=== PATIENT | female | born 1965 | race Hispanic/Latino ===

== ENCOUNTER 2017-08-14 22:10 | Emergency (ER) | payer BC ==
[~2017-08-14 22:10] MED LIST: ISOVUE-370 76%-LOCM 1 ML ONE
[2017-08-14 22:41] LABS: #Eosinphils 0.2 thou/uL (0.0-0.7); #Lymphocytes 2.3 thou/uL (1.20-3.40); #Monocytes 0.5 thou/uL (0.11-0.59); #Neutrophils 4.1 thou/uL (1.40-6.50); %Basophils 0.5 % (0.0-1.0); %Eosinophils 3.1 % (0.0-10.0); %Lymphocytes 32.6 % (21.0-51.0); %Monocytes 6.3 % (0.0-10.0); %Neutrophils 57.5 % (42.0-75.0); Hemoglobin 14.4 g/dL (12.0-16.0); Mean Corpuscular Hemoglobin 33.6 pg (27.0-31.0); Mean Corpuscular Volume 95.9 fl (81.0-99.0); Mean Platelet Volume 6.4 fL (7.4-10.4); Platelet Count 295 thou/uL (130-400); RBC Distribution Width 11.8 % (11.5-14.5); White Blood Cell (WBC) Count 7.1 thou/uL (4.8-10.8)
[2017-08-14 22:51] LABS: BHCG - Serum Negative (NEGATIVE); Pregs Control Background? CLEAR/WHITE (CLR/WHITE); Pregs Control Bar Appear? YES (CONTROL BAR)
[2017-08-14] MEDS ORDERED: Ondansetron HCl/PF 4 MG/2 ML Vial ONE (22:59)
[2017-08-14 23:02] LABS: ALT (SGPT) 26 U/L (8-55); AST (SGOT) 20 U/L (5-34); Albumin 4.2 g/dL (3.5-5.0); Alkaline Phosphatase 136 U/L (40-150); Anion Gap 12 mmol/L (10-20); BUN (Urea Nitrogen) 21 mg/dL (9.8-20.1); Bilirubin, Total 0.9 mg/dL (0.2-1.2); Calc. Creatinine Clearance 0 mL/min (70-130); Calcium 9.6 mg/dL (7.8-10.44); Carbon Dioxide 29 mmol/L (22-29); Chloride 103 mmol/L (98-107); Estimated GFR-MDRD Greater than 90; Globulin 3.6 g/dL (2.4-3.5); Glucose 129 mg/dL (70-105); Lipase 14 U/L (8-78); Potassium 3.7 mmol/L (3.5-5.1); Protein, Total 7.8 g/dL (6.0-8.3); Sodium 140 mmol/L (136-145)
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
[2017-08-15] MEDS ORDERED: Ketorolac Tromethamine 30 MG/ML VIAL ONE (00:35)
== END 2017-08-15 01:03 | disposition home or self-care (01) ==
LOC: ERS 22:10
DX: M79.1 Myalgia (principal); E11.9 Type 2 diabetes mellitus without complications; I10 Essential (primary) hypertension; F41.9 Anxiety disorder, unspecified; F32.9 Major depressive disorder, single episode, unspecified
CPT/HCPCS: 70450; 71260; 72125; 74177; 80053; 83690; 84703; 85025; 93005; 96374; 96375; J1885; J2270; J2405

== ENCOUNTER 2017-09-19 18:53 | Emergency (ER) | payer BC ==
[2017-09-19] MEDS ORDERED: HYDROcodone/Acetaminophen 5/325 mg Tablet ONE (19:35)
[2017-09-19] MEDS ORDERED: Adacel (T-DAP) 0.5 ML VIAL ONE (19:35)
--- NOTE | 2017-09-19 20:45 | RAD ---
LEFT HAND THREE VIEWS: History: Injury. Dog bite. Left hand pain. FINDINGS/IMPRESSION: No acute fracture or dislocation is seen. Degenerative changes, most prominent in the first carpal me tacarpal joint. No radiopaque foreign body is identified. POS: [facility]
[2017-09-19] MEDS ORDERED: Ondansetron ODT 4 MG TAB ONE (20:50)
[2017-09-19] MEDS ORDERED: Ondansetron HCl/PF 4 MG/2 ML Vial ONE (20:50)
== END 2017-09-19 21:33 | disposition home or self-care (01) ==
LOC: ERS 18:53
DX: S61.052A Open bite of left thumb without damage to nail, initial encounter (principal); E11.9 Type 2 diabetes mellitus without complications; I10 Essential (primary) hypertension; F41.9 Anxiety disorder, unspecified; F32.9 Major depressive disorder, single episode, unspecified; Z79.899 Other long term (current) drug therapy; Z79.84 Long term (current) use of oral hypoglycemic drugs; W54.0XXA Bitten by dog, initial encounter
CPT/HCPCS: 11740; 90471; 90715; J2405; Q0162

== ENCOUNTER 2018-02-05 15:21 | Emergency (ER) | payer BC, OTHER ==
[2018-02-05] MEDS ORDERED: Ketorolac Tromethamine 60 MG/2 ML VIAL ONE (18:26)
== END 2018-02-05 19:42 | disposition home or self-care (01) ==
LOC: ERS 15:21
DX: M54.42 Lumbago with sciatica, left side (principal); I10 Essential (primary) hypertension; E78.5 Hyperlipidemia, unspecified; F32.9 Major depressive disorder, single episode, unspecified; F41.9 Anxiety disorder, unspecified; E11.9 Type 2 diabetes mellitus without complications; Z79.84 Long term (current) use of oral hypoglycemic drugs; Z79.899 Other long term (current) drug therapy
CPT/HCPCS: 96372; J1885

== ENCOUNTER 2018-06-20 17:46 | Inpatient (IN) | payer BC, OTHER ==
[2018-06-20 18:15] LABS: #Basophils 0.1 thou/uL (0.0-0.2); #Eosinphils 0.2 thou/uL (0.0-0.7); #Lymphocytes 2.6 thou/uL (1.20-3.40); #Monocytes 0.5 thou/uL (0.11-0.59); #Neutrophils 6.8 thou/uL (1.40-6.50); %Basophils 0.5 % (0.0-1.0); %Eosinophils 1.8 % (0.0-10.0); %Lymphocytes 25.6 % (21.0-51.0); %Monocytes 5.1 % (0.0-10.0); Hemoglobin 14.8 g/dL (12.0-16.0); Mean Corpuscular HGB CONC 34.5 g/dL (32.0-36.0); Mean Corpuscular Hemoglobin 32.1 pg (27.0-31.0); Mean Corpuscular Volume 92.9 fL (78.0-98.0); Mean Platelet Volume 6.6 fL (7.4-10.4); Platelet Count 365 thou/uL (130-400); RBC Distribution Width 11.7 % (11.5-14.5); Red Blood Cell (RBC) Count 4.62 mill/uL (4.20-5.40); White Blood Cell (WBC) Count 10.2 thou/uL (4.8-10.8)
[2018-06-20 18:26] LABS: PTT 28.6 SEC (22.9-36.1)
[2018-06-20 18:30] LABS: Prothrombin Time 13.2 SEC (12.0-14.7)
[2018-06-20] MEDS ORDERED: Aspirin 325 MG TAB ONE (18:34)
--- NOTE | 2018-06-20 18:39 | RAD ---
FRONTAL RADIOGRAPH CHEST: DATE: 06/20/2018. COMPARISON: 12/11/2015. HISTORY: Chest pain. FINDINGS: Heart and mediastinal contours are stable. Mild pulmonary vascular congestion. No pneumothorax, ple ural fluid, focal consolidation, or alveolar edema. IMPRESSION: No acute findings. POS: [facility]
[2018-06-20 18:44] LABS: ALT (SGPT) 23 U/L (8-55); AST (SGOT) 19 U/L (5-34); Albumin 4.2 g/dL (3.5-5.0); Alkaline Phosphatase 160 U/L (40-150); Anion Gap 10 mmol/L (10-20); BUN (Urea Nitrogen) 17 mg/dL (9.8-20.1); Bilirubin, Total 1.2 mg/dL (0.2-1.2); Calc. Creatinine Clearance 0 mL/min (70-130); Calcium 10.3 mg/dL (7.8-10.44); Carbon Dioxide 26 mmol/L (22-29); Chloride 104 mmol/L (98-107); Estimated GFR-MDRD 84; Globulin 3.4 g/dL (2.4-3.5); Glucose 246 mg/dL (70-105); Potassium 3.5 mmol/L (3.5-5.1); Protein, Total 7.6 g/dL (6.0-8.3); Sodium 136 mmol/L (136-145)
[2018-06-20] MEDS ORDERED: Acetaminophen 325 MG TAB PO PRN ×2 (22:07→22:44)
[2018-06-20] MEDS ORDERED: Ondansetron PF 4 MG/2 ML Vial IVP PRN ×2 (22:07→22:44)
[2018-06-20] MEDS ORDERED: Ondansetron ODT 4 MG TAB SL PRN (22:07)
[2018-06-20 22:08] VITALS: BMI 40.1
[2018-06-20] MEDS ORDERED: Dextrose 5% in Water 1,000 ML IV PRN (22:40)
[2018-06-20] MEDS ORDERED: Dextrose 50% Abboject 50 ML SYRINGE SLOW IVP PRN (22:40)
[2018-06-20] MEDS ORDERED: HumaLOG 300 UNITS/3 ML VIAL SC PRN ×2 (22:40)
[2018-06-20] MEDS ORDERED: ALPRAZolam 0.25 MG TAB PO PRN (22:43)
[2018-06-20] MEDS ORDERED: Nitroglycerin 0.4 MG TAB (25 Tab Bottle) SL PRN (22:44)
[2018-06-20] MEDS ORDERED: hydrALAZINE 20 MG/ML VIAL SLOW IVP PRN (22:44)
[2018-06-20] MEDS ORDERED: cloNIDine 0.1 MG TAB PO PRN (22:44)
[2018-06-20] MEDS ORDERED: Ondansetron ODT 4 MG TAB PO PRN (22:44)
[2018-06-20] MEDS ORDERED: Bisacodyl 10 MG SUPP PR PRN (22:44)
[2018-06-20] MEDS ORDERED: Benzonatate 100 MG CAP PO PRN (22:44)
[2018-06-20] MEDS ORDERED: Senokot S 8.6-50 MG TAB PO PRN (22:44)
[2018-06-20] MEDS ORDERED: Bisacodyl 5 MG TAB PO PRN (22:44)
[2018-06-20] MEDS ORDERED: Enoxaparin Sodium 120 MG/0.8 ML SYRINGE SC SCH (22:45)
[2018-06-20] MEDS ORDERED: Digoxin 0.5 MG/2 ML AMP SLOW IVP PRN (22:47)
[2018-06-21] MEDS ORDERED: diphenhydrAMINE 25 MG CAP PO SCH (01:45)
[2018-06-21] MEDS ORDERED: DULoxetine 30 MG CAP PO SCH (04:00)
--- NOTE | 2018-06-21 04:12 | HP ---
Please note that the patient was seen prior to midnight. PRIMARY CARE PHYSICIAN: Temitope Roberts MD CHIEF COMPLAINT: Palpitation. HISTORY OF PRESENTING ILLNESS: Ms. Calvillo is a 52-year-old female with past medical history of diabetes mellitus and hypertension, who presented to the emergency room with sudden onset of palpitation. History is mainly obtained by the patient herself. Electronic medical records have been reviewed. Ms. Calvillo reports that she was sitting down in the house when suddenly she started to have palpitation. She immediately presented to the emergency room. This was not associated with any chest pain, shortness of breath, vomiting, diaphoresis, or nausea. Denies any history of heart disease. Denies any similar symptoms in the past. No recent exacerbating or relieving factors. No recent illnesses or sick contacts. Upon presentation to the emergency room, she was found to be tachycardic with a heart rate of 93, blood pressure 173/127. Her heart rate did go up as high as 138 to 146. She was treated with multiple dosages of IV diltiazem. Her 12-lead EKG showed atrial flutter with RVR initially, then atrial fibrillation with a controlled ventricular response. She is now being admitted to telemetry unit for new onset atrial fibrillation with RVR. Since being up on the floor, she has converted to normal sinus rhythm and is maintaining her heart rate in the 80s. PAST MEDICAL HISTORY: 1. Diabetes mellitus. 2. Hypertension. 3. Dyslipidemia. 4. Medical noncompliance. PAST SURGICAL HISTORY: 1. Bilateral eye surgeries. 2. Implant to right eye. 3. Cataract surgery to right eye. 4. Cholecystectomy. 5. Hysterectomy. 6. Left knee surgery. 7. Varicose vein surgery bilaterally. PSYCHIATRIC HISTORY: Anxiety and depression. SOCIAL HISTORY: No history of drug, tobacco, or alcohol abuse. FAMILY HISTORY: She denies any family history of premature coronary artery disease, stroke, or cancer. ALLERGIES: NO KNOWN MEDICATION ALLERGIES. HOME MEDICATIONS: As below: 1. Omeprazole 20 mg daily. 2. Multivitamin daily. 3. Duloxetine 60 mg at bedtime. 4. Atorvastatin 20 mg daily. 5. Flonase daily. 6. Meloxicam 15 mg daily. 7. Losartan 100 mg daily. 8. Metformin 1000 mg p.o. b.i.d. CODE STATUS: Full code discussed with the patient. REVIEW OF SYSTEMS: At this time, the patient is complaining of some arm restlessness. Otherwise, 12-point review of system is negative except for those mentioned in the history and physical. She has no other symptoms on my examination at this time. LABORATORY DATA: Her CBC is unremarkable. PT, PTT, and INR are within normal limits. Serum chemistries show blood sugar of 246, alkaline phosphatase 160. Cardiac enzymes are within normal limits x3 for troponin I. BNP 12.7. TSH normal at 1.31. DIAGNOSTIC STUDIES: Chest x-ray by my review has no pleural effusion, edema, or infiltrate. A 12-lead EKG initially showed atrial fibrillation with RVR, but later it showed atrial fibrillation with controlled ventricular response. QTc is [address]-T wave changes by my review. PHYSICAL EXAMINATION: VITAL SIGNS: Most recent vital signs; heart rate 82, temperature 98.1, pulse of 18, saturating 95% on room air, blood pressure 101/59, although this is a few hours old. I have been told that blood pressure has been better after that. GENERAL: No acute distress. She does appear somewhat restless, but was fast asleep when I woke her up. Awake, alert, and oriented x3. HEENT: Mucous membrane is moist and pink. No oropharyngeal exudate or erythema. Head is normocephalic, atraumatic. Pupils equal and reactive to light and accommodation. Extraocular movement intact. NECK: Supple without any lymphadenopathy, JVD, or bruit. CHEST: Clear to auscultation without any wheezing, rales, or rhonchi. HEART: Rate and rhythm are regular without any murmurs, rubs, or gallops. ABDOMEN: Soft, nontender, nondistended with positive bowel sounds. EXTREMITIES: Free of any cyanosis, clubbing, or edema. NEUROLOGICAL: Nonfocal. SKIN: Free of any rashes or bruises. Feels warm and dry to touch. PSYCHIATRIC: Anxious. IMPRESSION AND PLAN: 1. New onset atrial fibrillation. The patient has converted spontaneously and is rate controlled for now. We will use digoxin versus Cardizem if it happens again. She is currently hemodynamically stable. Given the high [id number] score of 3, we will start her on anticoagulation with Lovenox b.i.d. We will perform an echocardiogram and consult Cardiology for further recommendations. No provoking factors are identifiable at this time. 2. Hypertension. Restart her home medications of losartan. 3. Diabetes mellitus type 2. We will hold the metformin for now and start her on insulin sliding scale while in hospital with frequent Accu-Cheks. 4. Dyslipidemia. Continue Lipitor. 5. Deep venous thrombosis and gastrointestinal prophylaxis. 6. Code status. Full code. 7. Add p.r.n. medication orders. DISPOSITION: Ms. Calvillo is currently being admitted to the hospital with new onset atrial fibrillation with RVR, which has spontaneously resolved. Estimated length of stay at this time is at least 2 to 3 midnights. She might need electrophysiology evaluation if it reoccurs. Anticoagulation as above and most likely will need oral anticoagulation on discharge, but we will defer the final decision for Cardiology. Job ID: [id number]
[2018-06-21 06:19] LABS: #Basophils 0.1 thou/uL (0.0-0.2); #Eosinphils 0.3 thou/uL (0.0-0.7); #Lymphocytes 3.1 thou/uL (1.20-3.40); #Monocytes 0.6 thou/uL (0.11-0.59); #Neutrophils 5.3 thou/uL (1.40-6.50); %Basophils 1.1 % (0.0-1.0); %Eosinophils 3.3 % (0.0-10.0); %Lymphocytes 32.7 % (21.0-51.0); %Monocytes 6.2 % (0.0-10.0); %Neutrophils 56.8 % (42.0-75.0); Hemoglobin 13.1 g/dL (12.0-16.0); Mean Corpuscular HGB CONC 33.2 g/dL (32.0-36.0); Mean Corpuscular Hemoglobin 31.6 pg (27.0-31.0); Mean Platelet Volume 7.7 fL (7.4-10.4); Platelet Count 308 thou/uL (130-400); RBC Distribution Width 11.6 % (11.5-14.5); Red Blood Cell (RBC) Count 4.15 mill/uL (4.20-5.40); White Blood Cell (WBC) Count 9.4 thou/uL (4.8-10.8)
[2018-06-21 06:26] LABS: Anion Gap 12 mmol/L (10-20); BUN (Urea Nitrogen) 13 mg/dL (9.8-20.1); Calc. Creatinine Clearance 161 mL/min (70-130); Calcium 9.3 mg/dL (7.8-10.44); Carbon Dioxide 25 mmol/L (22-29); Chloride 104 mmol/L (98-107); Estimated GFR-MDRD 89; Glucose 268 mg/dL (70-105); Potassium 3.5 mmol/L (3.5-5.1); Sodium 137 mmol/L (136-145)
[2018-06-21] MEDS ORDERED: Fluticasone Propionate Nasal Spray 16 gm Bottle NASAL SCH (09:00)
[2018-06-21] MEDS ORDERED: Atorvastatin Calcium 20 MG TAB PO SCH (09:00)
[2018-06-21] MEDS ORDERED: Losartan 25 MG TAB PO SCH (09:00)
[2018-06-21] MEDS ORDERED: Enoxaparin Sodium 120 MG/0.8 ML SYRINGE SC SCH (09:00)
[2018-06-21] MEDS ORDERED: Multivit, Therapeutic 1 TAB PO SCH (09:00)
[2018-06-21] MEDS ORDERED: Famotidine 20 MG TAB PO SCH (09:00)
[2018-06-21] MEDS ORDERED: Apixaban 5 MG TAB PO SCH ×3 (09:00→21:00)
[2018-06-21 11:59] VITALS: BP 135/64; TEMP 97.6
--- NOTE | 2018-06-21 12:48 | DIS ---
DATE OF ADMISSION: 06/20/2018 DATE OF DISCHARGE: 06/21/2018 PRIMARY CARE PROVIDER: Temitope Roberts MD DISPOSITION: Discharged home. FINAL DIAGNOSES: Paroxysmal atrial fibrillation, hypertension, dyslipidemia, and diabetes mellitus type 2. DISCHARGE MEDICATIONS: New: 1. Eliquis 5 mg p.o. b.i.d. 2. Multaq 400 mg p.o. b.i.d. 3. Metoprolol XL 25 once a day. Routine medicines: 1. Metformin 1000 mg p.o. b.i.d. 2. Losartan 100 mg daily. 3. Atorvastatin 20 mg a day. 4. Cymbalta 60 mg a day. 5. Multivitamin. 6. Omeprazole 20 mg a day. ALLERGIES: NO KNOWN DRUG ALLERGIES. PENDING AT THE TIME OF DISCHARGE: The patient will have an outpatient echocardiogram at Dr. Deal's office next week. DIET: Diabetic. CODE STATUS: Full. HOSPITAL COURSE: The patient admitted to [facility]. She presented with palpitations, found to have atrial fibrillation with rapid ventricular response. She was given IV diltiazem. She converted to regular sinus rhythm soon after being placed on the floor. Dr. Deal, Cardiology was consulted. She is currently in regular sinus rhythm. Blood sugars were in the 200 to 300 range. Metabolic profile normal other than the blood sugar and alkaline phosphatase of 160. Cardiac enzymes normal x3. TSH 1.3. Hematology, CBC normal. Dr. Deal started on the patient on Eliquis 5 mg twice a day, metoprolol XL 25 once a day, and Multaq 400 twice a day. He has cleared the patient for discharge. The patient currently has a normal cardiorespiratory exam. She is being discharged on her home medicines plus those three new ones mentioned. No procedures were done. She will see Dr. Deal in the office in 1 week, at which time she will have an echocardiogram. Job ID: [id number]
[2018-06-21] MEDS ORDERED: Dronedarone HCl 400 MG TAB PO SCH (17:00)
[2018-06-21] MEDS ORDERED: DULoxetine 60 MG CAP PO SCH (21:00)
--- NOTE | 2018-06-22 01:30 | CON ---
DATE OF CONSULTATION: REASON FOR CONSULTATION: Atrial fibrillation. HISTORY OF PRESENT ILLNESS: Ms. Calvillo is a very pleasant 52-year-old woman, who I have seen and evaluated in the past. She has a previous history of diabetes mellitus, hypertension. She recently presented with palpitation. She was found to be in atrial fibrillation with RVR. There may be a component of atrial flutter. She converted to sinus rhythm after 3 hours. She is currently asymptomatic. No chest pain, pressure, or associated symptoms. PAST MEDICAL HISTORY: As above including hyperlipidemia and previous noncompliance. PAST SURGICAL HISTORY: Cataract surgery, cholecystectomy, hysterectomy, left knee surgery, and eye surgery. SOCIAL HISTORY: No current tobacco or alcohol use. ALLERGIES: NONE. HOME MEDICATIONS: Include metformin, cyclobenzaprine, losartan, hydrochlorothiazide, and Tylenol. REVIEW OF SYSTEMS: Ten-point review of systems is reviewed and is negative. PHYSICAL EXAMINATION: GENERAL: The patient is a pleasant female, who is in no acute distress. The patient appears their stated age. VITAL SIGNS: Blood pressure 135/64, pulse 70, and temperature 97.6. NEUROLOGIC: The patient is alert and oriented x3 with no focal neurologic deficits. HEENT: Sclerae without icterus. Mouth has moist mucous membranes with normal pallor. NECK: No JVD. Carotid upstroke brisk. No bruits bilaterally. LUNGS: Clear to auscultation with unlabored respirations. BACK: No scoliosis or kyphosis. CARDIAC: Regular rate and rhythm with normal S1 and S2. No S3 or S4 noted. No significant rubs, murmurs, thrills, or gallops noted throughout the precordium. PMI is not displaced. There is no parasternal heave. ABDOMEN: Soft, nontender, nondistended. No peritoneal signs present. No hepatosplenomegaly. No abnormal striae. EXTREMITIES: 2+ femoral and 2+ dorsalis pedis pulses. No cyanosis, clubbing, or edema. SKIN: No gross abnormalities. PERTINENT LABS: CK and troponin negative. Hemoglobin 13.1. TSH 1.3. Clinical Doppler showed normal LVEF. IMPRESSION: Paroxysmal atrial fibrillation. RECOMMENDATIONS: Ms. Calvillo's CHADS2 score is 3. She has increased risk of stroke. We discussed the risks and benefits of anticoagulation therapy. She has opted to take Eliquis. We would recommend 5 mg one p.o. b.i.d. I have also added Multaq 400 mg p.o. b.i.d. in addition to low-dose beta-koko therapy. From my standpoint, she will be okay for discharge with close outpatient followup. Job ID: [id number]
== END 2018-06-21 14:00 | disposition home or self-care (01) | DRG 310 ==
LOC: ERS 17:46 → 2NO 19:40
PROVIDERS: ADMIT Internal Medicine Infectious Disease; ATTEND Internal Medicine Infectious Disease
PROC: B24BZZZ Ultrasonography of Heart with Aorta (ICD-10-PCS; principal; 2018-06-21)
DX: I48.0 Paroxysmal atrial fibrillation (principal); I10 Essential (primary) hypertension; E11.9 Type 2 diabetes mellitus without complications; Z79.84 Long term (current) use of oral hypoglycemic drugs; E78.5 Hyperlipidemia, unspecified
CPT/HCPCS: 36416; 71045; 80048; 80053; 83735; 83880; 84443; 84484; 85025; 85610; 85730; 93005; 93306; 96361; 96374; 96376; J1650

== ENCOUNTER 2019-09-18 08:04 | Outpatient (CLI) | payer BC ==
--- NOTE | 2019-09-18 09:26 | MMO ---
Bilateral MAMMO Bilat Screen [facility]. CLINICAL HISTORY: Patient is 54 years old and is seen for screening. The patient has no family history of breast cancer. The patient has no personal history of cancer. VIEWS: The views performed were: bilateral craniocaudal with tomosynthesis and bilateral mediolateral oblique with tomosynthesis. This study has been interpreted with the assistance of computer-aided detection. MAMMOGRAM FINDINGS: There are scattered fibroglandular densities. There are no suspicious masses, suspicious calcifications, or new areas of architectural distortion. IMPRESSION: THERE IS NO MAMMOGRAPHIC EVIDENCE OF MALIGNANCY. A ROUTINE FOLLOW-UP MAMMOGRAM IN 1 YEAR IS RECOMMENDED. THE RESULTS OF THIS EXAM WERE SENT TO THE PATIENT. ACR BI-RADS Category 1 - Negative MAMMOGRAPHY NOTE: 1. A negative mammogram report should not delay a biopsy if a dominant of clinically suspicious mass is present. 2. Approximately 10% to 15% of breast cancers are not detected by mammography. 3. Adenosis and dense breasts may obscure an underlying neoplasm. Reported by: LAZARA AGUILERA MD Electonically Signed: [id number]
== END 2019-09-18 08:05 | disposition home or self-care (01) ==
LOC: BICMAMMO 08:04
PROVIDERS: ATTEND Nurse Practitioner Family
DX: Z12.31 Encounter for screening mammogram for malignant neoplasm of breast (principal)
CPT/HCPCS: 77063; 77067

== ENCOUNTER 2019-10-11 21:42 | Inpatient (IN) | payer BC ==
[2019-10-11 22:07] LABS: #Basophils 0.1 thou/uL (0.0-0.2); #Eosinphils 0.3 thou/uL (0.0-0.7); #Lymphocytes 3.1 thou/uL (1.20-3.40); #Monocytes 0.7 thou/uL (0.11-0.59); #Neutrophils 8.2 thou/uL (1.40-6.50); %Basophils 0.8 % (0.0-1.0); %Eosinophils 2.6 % (0.0-10.0); %Lymphocytes 25.4 % (21.0-51.0); %Monocytes 5.3 % (0.0-10.0); %Neutrophils 65.9 % (42.0-75.0); Hemoglobin 15.2 g/dL (12.0-16.0); Mean Corpuscular HGB CONC 35.3 g/dL (32.0-36.0); Mean Corpuscular Hemoglobin 32.2 pg (27.0-31.0); Mean Corpuscular Volume 91.4 fL (78.0-98.0); Mean Platelet Volume 6.6 fL (7.4-10.4); Platelet Count 338 thou/uL (130-400); RBC Distribution Width 11.7 % (11.5-14.5); Red Blood Cell (RBC) Count 4.72 mill/uL (4.20-5.40); White Blood Cell (WBC) Count 12.4 thou/uL (4.8-10.8)
[2019-10-11 22:24] LABS: ALT (SGPT) 21 U/L (8-55); AST (SGOT) 15 U/L (5-34); Albumin 4.1 g/dL (3.5-5.0); Alkaline Phosphatase 161 U/L (40-110); Anion Gap 14 mmol/L (10-20); BUN (Urea Nitrogen) 10 mg/dL (9.8-20.1); Bilirubin, Total 0.8 mg/dL (0.2-1.2); Calc. Creatinine Clearance 0 mL/min (70-130); Calcium 9.9 mg/dL (7.8-10.44); Carbon Dioxide 24 mmol/L (22-29); Chloride 104 mmol/L (98-107); Estimated GFR-MDRD 76; Globulin 3.5 g/dL (2.4-3.5); Glucose 191 mg/dL (70-105); Potassium 3.7 mmol/L (3.5-5.1); Protein, Total 7.6 g/dL (6.0-8.3); Sodium 138 mmol/L (136-145)
[2019-10-11] MEDS ORDERED: Diltiazem 125 MG/25 ML ONE (22:29)
[2019-10-11] MEDS ORDERED: Enoxaparin Sodium 100 MG/ML SYRINGE ONE (22:57)
--- NOTE | 2019-10-11 23:11 | RAD ---
RADIOGRAPH CHEST 1 VIEW: DATE: 10/11/2019 HISTORY: 54-year-old female with palpitations FINDINGS: Lungs are hypoinflated, and positioning is reversed lordotic. There is no evidence of gross consolida tion, pulmonary edema, or pneumothorax. Mild haziness at left lower lung zone, nonspecific The lateral costophrenic angles are not effaced. IMPRESSION: 1. Limited study. 2. No gross consolidation identified.
[2019-10-11] MEDS ORDERED: Potassium Chloride 20 MEQ TAB ONE (23:59)
[2019-10-11] MEDS ORDERED: Magnesium 2 GM/50 ML BAG (IN WATER) ONE (23:59)
[2019-10-12] MEDS ORDERED: Dextrose 5% in Water 1,000 ML IV PRN (00:38)
[2019-10-12] MEDS ORDERED: Dextrose 50% Abboject 50 ML SYRINGE SLOW IVP PRN (00:38)
[2019-10-12] MEDS ORDERED: HumaLOG 300 UNITS/3 ML VIAL SC PRN (00:38)
[2019-10-12] MEDS ORDERED: Diltiazem 125 MG in Sodium Chloride 0.9% 100 ML IVPB SCH (00:45)
--- NOTE | 2019-10-12 01:15 | HP ---
CHIEF COMPLAINT: Palpitations. HISTORY OF PRESENT ILLNESS: Ms. Calvillo is a 54-year-old female, with past medical history of diabetes mellitus, type 2; hypertension; hyperlipidemia; and atrial fibrillation, presented to the emergency room with heart palpitations. Denies chest pain, fever, chills, nausea, vomiting, or abdominal pain. Denies dizziness. Patient had similar prior episodes in the past. She denies being on blood thinners at this time. Patient is being admitted to the hospital for further management. PAST MEDICAL HISTORY: As mentioned above in the history of present illness. SURGICAL HISTORY: 1. Cataract surgery. 2. Cholecystectomy. 3. Hysterectomy. 4. Knee surgery. 5. Bilateral leg varicose vein surgery. PAST PSYCHIATRIC HISTORY: Anxiety and depression. SOCIAL HISTORY: Denies alcohol drinking. No history of smoking. FAMILY HISTORY: Reviewed and noncontributory. HOME MEDICATIONS: Please see home medication reconciliation form for updated medications. ALLERGIES: NO KNOWN ALLERGIES. REVIEW OF SYSTEMS: Review of 14 systems negative, except what is mentioned in the history of present illness. PHYSICAL EXAMINATION: GENERAL: Patient is awake, alert, in mild distress. VITAL SIGNS: Blood pressure 110/96, pulse is 117, respiratory rate is 15, temperature 98.2, and oxygen saturation is 95% on room air. HEAD AND NECK: Normocephalic and atraumatic. Neck is supple. No JVD. CHEST: Fair bilateral air entry. HEART: Irregularly irregular, tachycardic. ABDOMEN: Soft, nontender. Bowel sounds present. NEUROLOGIC: Awake, alert, and oriented x3. No focal findings. PSYCH: Unable to assess. EXTREMITIES: No clubbing, no cyanosis. GENITOURINARY: No suprapubic tenderness. No flank tenderness. IMAGING: Chest x-ray, no acute finding. LABORATORY DATA: TSH is 3.7. Troponin is less than 0.01. Electrolytes; glucose 191, otherwise unremarkable. CBC; WBC count is 12.4. ASSESSMENT AND PLAN: 1. Atrial fibrillation with rapid ventricular response. Patient was given IV diltiazem, followed by IV diltiazem drip. The blood pressure dropped, requiring IV fluid bolus in the ED. 2. Diabetes mellitus, type 2 with hyperglycemia. 3. History of hypertension. 4. Hyperlipidemia. PLAN: 1. Admit to IMCU. 2. Continue with IV diltiazem drip. 3. We will anticoagulate. Apparently, patient was on anticoagulation in the past, but it was stopped. 4. 2D echo. 5. Consult Cardiology in a.m. for evaluation and further recommendations. 6. Reconcile home medications. 7. DVT prophylaxis as appropriate. 8. Expected length of stay 2 midnights or more. Job ID: [id number]
[2019-10-12 01:16] LABS: Troponin I 0.019 ng/mL (< 0.028)
[2019-10-12 01:19] VITALS: BMI 40.9
[2019-10-12] MEDS: Sodium Chloride 0.9% 1,000 ML IV SCH ×2 (01:57→13:08)
[2019-10-12 04:25] LABS: Troponin I 0.023 ng/mL (< 0.028)
[2019-10-12] MEDS ORDERED: Famotidine/PF 20 mg/2ml Vial SLOW IVP SCH (09:00)
[2019-10-12] MEDS ORDERED: Aspirin 325 mg Enteric Coated Tablet PO SCH (09:00)
[2019-10-12] MEDS ORDERED: Enoxaparin Sodium 120 MG/0.8 ML SYRINGE SC SCH (09:00)
[2019-10-12] MEDS: Aspirin 81 mg Enteric Coated Tablet PO SCH (10:42)
--- NOTE | 2019-10-12 11:59 | PDOC.HOSPP ---
- Subjective Encounter Date: 10/12/19 Encounter Time: 08:15 Subjective: no sob or palpitaitons or chest pain feels good this am - Objective Vital Signs & Weight: Vital Signs (12 hours) Temp Pulse Ox 10/12/19 11:24 98.0 F 10/12/19 08:00 97 10/12/19 07:22 97.6 F 10/12/19 06:43 93 L 10/12/19 01:43 96 10/12/19 01:10 98.2 F 10/12/19 00:35 97 Weight Weight 246 lb 4 oz Most Recent Monitor Data Heart Rate from ECG 76 NIBP 123/71 NIBP BP-Mean 88 Respiration from ECG 19 SpO2 93 I&O: 10/11/19 10/12/19 10/13/19 06:59 06:59 06:59 Intake Total 717 Output Total 1200 Balance -483 Result Diagrams: 10/11/19 21:51 10/11/19 21:51 Additional Labs: Accuchecks 10/12/19 10/12/19 11:04 05:35 POC Glucose 123 H 124 H Hospitalist ROS - Medication Medications: Active Medications Generic Name Dose Route Start Last Admin Trade Name Freq PRN Reason Stop Dose Admin Aspirin 81 mg 10/12/19 09:00 10/12/19 10:42 Ecotrin PO 81 mg DAILY TAN Administration Sodium Chloride 10 ml 10/12/19 09:00 10/12/19 10:43 Flush - Normal Saline IVF 10 ml Q12HR TAN Administration - Exam General Appearance: NAD, awake alert Eye: PERRL, anicteric sclera ENT: no oropharyngeal lesions, moist mucosa Neck: supple, no JVD Heart: RRR, no murmur Respiratory: no wheezes, no rales Gastrointestinal: soft, non-tender, non-distended, normal bowel sounds Extremities: no cyanosis, no edema Neurological: cranial nerve grossly intact, no focal deficits Psychiatric: normal affect, A&O x 3 Hosp A/P (1) Atrial fibrillation with rapid ventricular response Code(s): I48.91 - UNSPECIFIED ATRIAL FIBRILLATION Status: Resolved (2) DM type 2 (diabetes mellitus, type 2) Status: Chronic Qualifiers: Diabetes mellitus mcc insulin use: without moth exterminator use (3) Dyslipidemia Code(s): E78.5 - HYPERLIPIDEMIA, UNSPECIFIED Status: Chronic (4) HTN (hypertension) Code(s): I10 - ESSENTIAL (PRIMARY) HYPERTENSION Status: Chronic Qualifiers: Hypertension type: essential hypertension Qualified Code(s): I10 - Essential (primary) hypertension (5) Obesity Code(s): E66.9 - OBESITY, UNSPECIFIED Status: Chronic Qualifiers: Obesity classification: adult class 3 (BMI >= 40) Body mass index: BMI 40.0 -44.9 - Plan paroxysmal afib in sinus rhythm on cardizem drip 7.5mg/hr will switch to oral cardizem cd and low dose lopressor, eliquis echo is pending, cardiology consultation this is her second episode of afib, she had seen before but with change of insurance couldn't see him again. continue home meds as before tx to telemetry, no hypotensive episodes now. oral diet, dc iv fluids
[2019-10-12] MEDS: traMADol HCl 50 MG TAB PO PRN (14:32)
--- NOTE | 2019-10-12 15:11 | CON ---
DATE OF CONSULTATION: 10/12/2019 REASON FOR CONSULTATION: Atrial fibrillation. PRIMARY EXPLOSIVE OPERATOR BOMB: Leo Deal MD. HISTORY OF PRESENT ILLNESS: Ms. Calvillo is a very pleasant 54-year-old female, who comes to the hospital for palpitations. She was evaluated in the ER for this and was found to be in atrial fibrillation with RVR. She was started on diltiazem drip. Overnight, she has already converted back to sinus rhythm and feels back to normal. She does have a history of paroxysmal atrial fibrillation. About 2 years ago, she was placed on Multaq and Eliquis as her CHADS-VASc score is 3 with hypertension, diabetes, and age. She has not been very much compliant with these medications. The last time she saw Dr. Deal was about a year ago. PAST MEDICAL HISTORY: 1. Paroxysmal atrial fibrillation. 2. Type 2 diabetes. 3. Hypertension. 4. Hyperlipidemia. PAST SURGICAL HISTORY: 1. Cataract surgery. 2. Cholecystectomy. 3. Hysterectomy. 4. Knee surgery. 5. Bilateral leg varicose veins procedure. SOCIAL HISTORY: No alcohol, tobacco, or drugs. FAMILY HISTORY: Noncontributory. OUTPATIENT MEDICATIONS: 1. Glipizide 2.5 mg a day. 2. Tramadol p.r.n. 3. Tizanidine. 4. Metformin 1000 mg b.i.d. 5. Hydroxyzine p.r.n. 6. Omeprazole 20 mg at bedtime. 7. Fluoxetine 20 mg q.a.m. 8. Cinnamon bark. ALLERGIES: NO KNOWN DRUG ALLERGIES. REVIEW OF SYSTEMS: A 12-point review of systems was done and was all negative unless stated in the history of present illness. PHYSICAL EXAMINATION: VITAL SIGNS: Temperature 98.8, pulse 58, respiratory rate 16, saturations 97% on room air, blood pressure 146/68. GENERAL: Awake, alert, oriented x3, in no distress. HEENT: Normocephalic and atraumatic. NECK: Supple. LUNGS: Clear. CARDIOVASCULAR: S1 and S2. No S3 or S4. No murmurs. ABDOMEN: Soft. Positive bowel sounds. EXTREMITIES: Trace edema. SKIN: Warm and dry. LABORATORY DATA: Laboratory work was reviewed. CBC is unremarkable. D-dimer is a little bit high. Chemistries were unremarkable. Troponin was negative x2. BNP was 236. TSH was 3.5. UA was unremarkable. IMAGING STUDIES: Chest x-ray, unremarkable. Lower extremity ultrasound was normal. ASSESSMENT AND PLAN: 1. Paroxysmal atrial fibrillation in rapid ventricular response, back to sinus now. 2. Medication noncompliance. 3. CHADS-VASc score of 3 for a female, hypertension, and diabetes. PLAN: 1. She is back in sinus. Agree with being off the drips. Continue beta-koko and diltiazem. We will start Multaq as she did very well while on the Multaq 400 mg b.i.d. She states that she had problems with insurance, but now she is insured since she has been working at the [employer]. 2. Continue full anticoagulation with Eliquis. 3. Dr. Deal will follow up in the morning. Most likely home tomorrow. Job ID: [id number]
[2019-10-12] MEDS: metFORMIN 500 MG TAB PO SCH (17:10)
[2019-10-12] MEDS: Dronedarone HCl 400 MG TAB PO SCH (17:10)
[2019-10-12] MEDS ORDERED: hydrOXYzine 25 MG TAB PO PRN (17:49)
[2019-10-12] MEDS: Apixaban 5 MG TAB PO SCH (20:36)
[2019-10-12] MEDS ORDERED: Metoprolol Tartrate 25 MG TAB PO SCH (21:00)
[2019-10-12] MEDS ORDERED: FLUoxetine HCl 20 MG CAP PO SCH (21:00)
[2019-10-12] MEDS ORDERED: tiZANidine HCl 4 MG TAB PO PRN (21:00)
[2019-10-13] MEDS ORDERED: Melatonin 3 MG TAB PO SCH (00:15)
[2019-10-13] MEDS: traMADol HCl 50 MG TAB PO PRN (00:16)
[2019-10-13 04:38] LABS: Hemoglobin 13.5 g/dL (12.0-16.0); Platelet Count 302 thou/uL (130-400)
[2019-10-13 05:01] LABS: Calc. Creatinine Clearance 188 mL/min (70-130); Estimated GFR-MDRD Greater than 90
[2019-10-13 07:01] VITALS: TEMP 98
[2019-10-13] MEDS: metFORMIN 500 MG TAB PO SCH (08:02)
[2019-10-13] MEDS: Dronedarone HCl 400 MG TAB PO SCH (08:02)
[2019-10-13] MEDS: Apixaban 5 MG TAB PO SCH (08:02)
[2019-10-13] MEDS: Aspirin 81 mg Enteric Coated Tablet PO SCH (08:02)
[2019-10-13] MEDS ORDERED: FLUoxetine HCl 20 MG CAP PO SCH (09:00)
--- NOTE | 2019-10-13 10:40 | PRG ---
DATE OF SERVICE: 10/13/2019 SUBJECTIVE: Ms. Calvillo is doing well. She continues to be in sinus rhythm. Echo Doppler dated 10/12/2019 with LVEF of 60% to 65%. She did have mild concentric LVH. PHYSICAL EXAMINATION: Vital Signs: Current blood pressure 131/60, pulse 66, temperature 98, respirations General: The patient is a pleasant lady in no acute distress, appears stated age. Head, Eyes, Ears, Nose and Throat: Sclerae without icterus. Mouth: Moist mucous membranes, normal palate. Neck: No jugular venous distention. Carotid upstroke is brisk. No bruits bilaterally. Lungs: Clear to auscultation. Heart: Regular rate and rhythm, normal S1 and S2. Abdomen: Soft, nontender, nondistended. Extremities: No edema. PERTINENT LABORATORY DATA: Hemoglobin 13.5 and hematocrit 38.7. Creatinine 0.59. MEDICATIONS: Pertinent cv medications include: 1. Eliquis 5 mg b.i.d. 2. Aspirin 81 daily. 3. Cardizem 240 q.a.m. 4. Multaq 400 b.i.d. IMPRESSION: Paroxysmal atrial fibrillation. RECOMMENDATIONS: 1. Agree with adding Eliquis. 2. Discontinue aspirin. 3. Continue Cardizem at the current dose in addition to Multaq. 4. Overall LVEF appears normal. 5. From my standpoint, she will be okay for discharge with close outpatient followup. Job ID: [id number]
[2019-10-13 11:14] VITALS: BP 131/60
--- NOTE | 2019-10-13 17:40 | DIS ---
DATE OF ADMISSION: 10/12/2019 DATE OF DISCHARGE: 10/13/2019 DISCHARGE DISPOSITION: Home. PRIMARY DISCHARGE DIAGNOSIS: Atrial fibrillation with rapid ventricular response, likely paroxysmal in sinus rhythm. SECONDARY DISCHARGE DIAGNOSES: Diabetes mellitus, type 2; dyslipidemia; hypertension and obesity. PROCEDURES DONE DURING HOSPITALIZATION: Chest x-ray done showed no acute cardiopulmonary abnormality, echo with 2D Doppler showed ejection fraction of 60% to 65%, grade 1/3 diastolic dysfunction, mild concentric LVH, moderate tricuspid regurgitation. LABORATORY DATA: H and H of 13 and 38, platelet count 302, MCV is 91, creatinine was 0.5. Troponin x3 negative. TSH 3.7. DISCHARGE MEDICATIONS: 1. Multaq 400 mg p.o. twice daily. 2. Cardizem CD 120 mg p.o. daily. 3. Eliquis 5 mg p.o. twice daily. 4. Omeprazole 20 mg p.o. at bedtime. 5. Metformin 1000 mg twice daily. 6. Glipizide extended release 2.5 mg p.o. q.a.m. 7. Fluoxetine 20 mg p.o. q.a.m. 8. Ultram p.r.n. for pain. ALLERGIES: NO KNOWN DRUG ALLERGIES. DISCHARGE PLAN: The patient to follow up with her primary care physician, Dr. Shayna Reynolds in 1 week, Dr. Deal in 2 to 3 weeks. INPATIENT CONSULT: Dr. Fernandes/[facility]. BRIEF COURSE DURING HOSPITALIZATION: The patient initially came to ER on the with complaints of palpitation. She was found to be in atrial fibrillation with RVR. She has had prior episode of paroxysmal atrial fibrillation eight years back. She failed to follow up with Dr. Deal due to insurance issues. She was placed on Cardizem drip and had initial hypotension, hence was admitted to [facility] for close monitoring. The patient converted to sinus rhythm on Cardizem drip and was switched over to Multaq and Cardizem CD. Her hypotension got resolved. The patient dramatically improved during her brief stay here. She was evaluated by Dr. Fernandes and Dr. Deal for Cardiology. She has been initiated on Multaq, Cardizem CD, and Eliquis. Her echo showed good ejection fraction. The patient is ambulating and is eating well. She is wanting to go home. Please note, I have seen and examined the patient on the day of discharge. Job ID: [id number]
== END 2019-10-13 11:20 | disposition home or self-care (01) | DRG 309 ==
LOC: ERS 21:42 → IMCU/EMU 10-12 00:17 → 2NO 10-12 13:21
PROVIDERS: ADMIT Internal Medicine; ATTEND Internal Medicine
DX: I48.0 Paroxysmal atrial fibrillation (principal); Z68.41 Body mass index [BMI] 40.0-44.9, adult; I10 Essential (primary) hypertension; E78.5 Hyperlipidemia, unspecified; F41.9 Anxiety disorder, unspecified; F32.9 Major depressive disorder, single episode, unspecified; E66.9 Obesity, unspecified; I95.9 Hypotension, unspecified; I07.1 Rheumatic tricuspid insufficiency; E11.65 Type 2 diabetes mellitus with hyperglycemia; Z90.49 Acquired absence of other specified parts of digestive tract; Z90.710 Acquired absence of both cervix and uterus; Z98.49 Cataract extraction status, unspecified eye; Z91.14 Patient's other noncompliance with medication regimen
CPT/HCPCS: 36415; 36416; 71045; 80053; 82565; 83735; 84443; 84484; 85014; 85018; 85025; 85049; 90471; 90732; 93005; 93306; 94760; 96365; 96366; 96368; 96372; 96376; G0009; J1650; J3475; S0028

== ENCOUNTER 2020-12-25 14:06 | Outpatient (CLI) | payer BC | END 2020-12-25 14:07 | disposition home or self-care (01) | LOC: BICMAMMO 14:06 | PROVIDERS: ATTEND Family Medicine | DX: Z12.31 Encounter for screening mammogram for malignant neoplasm of breast (principal); N63.10 Unspecified lump in the right breast, unspecified quadrant | CPT/HCPCS: 77063; 77067 ==

== ENCOUNTER 2021-05-06 18:00 | Outpatient (CLI) | payer BC | END 2021-05-06 18:01 | disposition home or self-care (01) | LOC: SLEEPLAB 18:00 | PROVIDERS: ATTEND Family Medicine | DX: G47.33 Obstructive sleep apnea (adult) (pediatric) (principal); R53.83 Other fatigue; R09.89 Other specified symptoms and signs involving the circulatory and respiratory systems; E11.9 Type 2 diabetes mellitus without complications; I10 Essential (primary) hypertension; G47.00 Insomnia, unspecified; E66.9 Obesity, unspecified; Z68.41 Body mass index [BMI] 40.0-44.9, adult | CPT/HCPCS: 95806 ==

== ENCOUNTER 2021-06-02 07:33 | Inpatient (IN) | payer BC ==
[2021-06-02] MEDS ORDERED: Diltiazem 125 MG/25 ML ONE ×2 (08:02→08:04)
[2021-06-02 08:21] LABS: #Eosinphils 0.3 thou/uL (0.0-0.7); #Lymphocytes 2.3 thou/uL (1.20-3.40); #Monocytes 0.7 thou/uL (0.11-0.59); #Neutrophils 7.5 thou/uL (1.40-6.50); %Basophils 0.3 % (0.0-1.0); %Eosinophils 2.4 % (0.0-10.0); %Lymphocytes 21.4 % (21.0-51.0); %Monocytes 6.2 % (0.0-10.0); %Neutrophils 69.6 % (42.0-75.0); Hemoglobin 14.9 g/dL (12.0-16.0); Mean Corpuscular HGB CONC 34.5 g/dL (32.0-36.0); Mean Corpuscular Hemoglobin 32.5 pg (27.0-31.0); Mean Corpuscular Volume 94.2 fL (78.0-98.0); Mean Platelet Volume 6.5 fL (7.4-10.4); Platelet Count 326 thou/uL (130-400); RBC Distribution Width 11.7 % (11.5-14.5); Red Blood Cell (RBC) Count 4.57 mill/uL (4.20-5.40); White Blood Cell (WBC) Count 10.8 thou/uL (4.8-10.8)
[2021-06-02 08:35] LABS: ALT (SGPT) 28 U/L (8-55); AST (SGOT) 20 U/L (5-34); Alkaline Phosphatase 133 U/L (40-110); Anion Gap 12 mmol/L (10-20); BUN (Urea Nitrogen) 11 mg/dL (9.8-20.1); Bilirubin, Total 1.5 mg/dL (0.2-1.2); Calc. Creatinine Clearance 0 mL/min (70-130); Calcium 9.7 mg/dL (7.8-10.44); Carbon Dioxide 25 mmol/L (22-29); Chloride 103 mmol/L (98-107); Globulin 3.5 g/dL (2.4-3.5); Glucose 148 mg/dL (70-105); Magnesium 1.4 mg/dL (1.6-2.6); Potassium 3.6 mmol/L (3.5-5.1); Protein, Total 7.5 g/dL (6.0-8.3); Sodium 136 mmol/L (136-145)
[2021-06-02] MEDS ORDERED: Magnesium 2 GM/50 ML BAG (IN WATER) ONE (09:35)
[2021-06-02] MEDS ORDERED: Dextrose 5% in Water 1,000 ML IV PRN (11:25)
[2021-06-02] MEDS ORDERED: hydrALAZINE 20 MG/ML VIAL SLOW IVP PRN (11:25)
[2021-06-02] MEDS ORDERED: Dextrose 50% Abboject 50 ML SYRINGE SLOW IVP PRN (11:25)
[2021-06-02] MEDS ORDERED: HumaLOG 300 UNITS/3 ML VIAL SC PRN ×2 (11:25)
[2021-06-02] MEDS ORDERED: Acetaminophen 325 MG TAB PO PRN (11:25)
[2021-06-02] MEDS ORDERED: Diltiazem 125 MG in Sodium Chloride 0.9% 100 ML IVPB SCH ×2 (11:30→19:13)
[2021-06-02 11:47] LABS: Troponin I Less than 0.010 ng/mL (< 0.028)
[2021-06-02 15:19] LABS: Troponin I Less than 0.010 ng/mL (< 0.028)
[2021-06-02 16:02] VITALS: BMI 40.3
[2021-06-02] MEDS ORDERED: Rivaroxaban 10 MG TAB PO SCH (17:00)
[2021-06-03 04:27] VITALS: TEMP 97.9
[2021-06-03 05:16] LABS: #Eosinphils 0.3 thou/uL (0.0-0.7); #Lymphocytes 2.5 thou/uL (1.20-3.40); #Monocytes 0.6 thou/uL (0.11-0.59); #Neutrophils 4.6 thou/uL (1.40-6.50); %Basophils 0.5 % (0.0-1.0); %Lymphocytes 30.5 % (21.0-51.0); %Monocytes 7.4 % (0.0-10.0); %Neutrophils 57.6 % (42.0-75.0); Hemoglobin 13.7 g/dL (12.0-16.0); Mean Corpuscular HGB CONC 35.3 g/dL (32.0-36.0); Mean Corpuscular Hemoglobin 33.3 pg (27.0-31.0); Mean Corpuscular Volume 94.4 fL (78.0-98.0); Mean Platelet Volume 6.4 fL (7.4-10.4); Platelet Count 301 thou/uL (130-400); RBC Distribution Width 11.6 % (11.5-14.5); Red Blood Cell (RBC) Count 4.12 mill/uL (4.20-5.40); White Blood Cell (WBC) Count 8.1 thou/uL (4.8-10.8)
[2021-06-03 05:32] LABS: Anion Gap 10 mmol/L (10-20); BUN (Urea Nitrogen) 9 mg/dL (9.8-20.1); Calc. Creatinine Clearance 176 mL/min (70-130); Calcium 9.3 mg/dL (7.8-10.44); Carbon Dioxide 26 mmol/L (22-29); Chloride 105 mmol/L (98-107); Glucose 124 mg/dL (70-105); Potassium 3.5 mmol/L (3.5-5.1); Sodium 137 mmol/L (136-145)
[2021-06-03 12:07] VITALS: BP 126/60
== END 2021-06-03 11:20 | disposition home or self-care (01) | DRG 309 ==
LOC: ERS 07:33 → ERHOLD 09:57 → 2NO 12:45
PROVIDERS: ADMIT Internal Medicine; ATTEND Internal Medicine
DX: I48.0 Paroxysmal atrial fibrillation (principal); Z68.41 Body mass index [BMI] 40.0-44.9, adult; E11.9 Type 2 diabetes mellitus without complications; I10 Essential (primary) hypertension; E78.5 Hyperlipidemia, unspecified; G47.33 Obstructive sleep apnea (adult) (pediatric); E78.00 Pure hypercholesterolemia, unspecified; E66.01 Morbid (severe) obesity due to excess calories; Z79.84 Long term (current) use of oral hypoglycemic drugs; Z79.899 Other long term (current) drug therapy; Z90.710 Acquired absence of both cervix and uterus; Z90.49 Acquired absence of other specified parts of digestive tract; Z98.49 Cataract extraction status, unspecified eye
CPT/HCPCS: 36415; 36416; 71045; 80048; 80053; 83735; 84443; 84484; 85025; 93005; 96365; 96366; 96376; J3475

== ENCOUNTER 2021-06-17 19:30 | Outpatient (CLI) | payer BC | END 2021-06-17 19:31 | disposition home or self-care (01) | LOC: SLEEPLAB 19:30 | PROVIDERS: ATTEND Family Medicine | DX: G47.33 Obstructive sleep apnea (adult) (pediatric) (principal); R53.83 Other fatigue; R09.89 Other specified symptoms and signs involving the circulatory and respiratory systems; E11.9 Type 2 diabetes mellitus without complications; I10 Essential (primary) hypertension; G47.10 Hypersomnia, unspecified; E66.9 Obesity, unspecified; Z68.41 Body mass index [BMI] 40.0-44.9, adult | CPT/HCPCS: 95811 ==

== ENCOUNTER 2021-07-19 02:44 | Emergency (ER) | payer BC ==
[2021-07-19 03:08] LABS: #Basophils 0.1 thou/uL (0.0-0.2); #Eosinphils 0.1 thou/uL (0.0-0.7); #Lymphocytes 2.9 thou/uL (1.20-3.40); #Monocytes 0.3 thou/uL (0.11-0.59); #Neutrophils 11.6 thou/uL (1.40-6.50); %Basophils 0.4 % (0.0-1.0); %Eosinophils 0.5 % (0.0-10.0); %Lymphocytes 19.4 % (21.0-51.0); %Monocytes 1.8 % (0.0-10.0); %Neutrophils 77.9 % (42.0-75.0); Hemoglobin 16.2 g/dL (12.0-16.0); Mean Corpuscular HGB CONC 34.6 g/dL (32.0-36.0); Mean Corpuscular Hemoglobin 32.4 pg (27.0-31.0); Mean Corpuscular Volume 93.5 fL (78.0-98.0); Mean Platelet Volume 6.5 fL (7.4-10.4); Platelet Count 344 thou/uL (130-400); RBC Distribution Width 11.6 % (11.5-14.5); White Blood Cell (WBC) Count 14.8 thou/uL (4.8-10.8)
[2021-07-19] MEDS ORDERED: Metoclopramide HCl 10 MG/2 ML VIAL ONE (03:09)
[2021-07-19] MEDS ORDERED: diphenhydrAMINE 50 MG/ML VIAL ONE (03:09)
[2021-07-19 03:32] LABS: ALT (SGPT) 21 U/L (8-55); AST (SGOT) 17 U/L (5-34); Albumin 4.1 g/dL (3.5-5.0); Alkaline Phosphatase 157 U/L (40-110); Anion Gap 13 mmol/L (10-20); BUN (Urea Nitrogen) 14 mg/dL (9.8-20.1); Bilirubin, Total 1.4 mg/dL (0.2-1.2); Calc. Creatinine Clearance 0 mL/min (70-130); Carbon Dioxide 26 mmol/L (22-29); Chloride 102 mmol/L (98-107); Globulin 3.3 g/dL (2.4-3.5); Glucose 188 mg/dL (70-105); Lipase 59 U/L (8-78); Potassium 3.4 mmol/L (3.5-5.1); Protein, Total 7.4 g/dL (6.0-8.3); Sodium 138 mmol/L (136-145)
== END 2021-07-19 05:48 | disposition home or self-care (01) ==
LOC: ERS 02:44
DX: R51.9 Headache, unspecified (principal); R11.2 Nausea with vomiting, unspecified; I48.0 Paroxysmal atrial fibrillation; E78.5 Hyperlipidemia, unspecified; E78.00 Pure hypercholesterolemia, unspecified; E11.9 Type 2 diabetes mellitus without complications; I10 Essential (primary) hypertension
CPT/HCPCS: 71045; 80053; 83690; 84484; 85025; 93005; 96374; 96375; J1200; J2765

== ENCOUNTER 2025-02-26 13:56 | Outpatient (CLI) | payer BC | END 2025-02-26 13:57 | disposition home or self-care (01) | LOC: SCSRAD 13:56 | PROVIDERS: ATTEND Family Medicine | DX: R07.81 Pleurodynia (principal); J90 Pleural effusion, not elsewhere classified; J98.11 Atelectasis ==

== ENCOUNTER 2025-03-09 08:55 | Outpatient (CLI) | payer BC | END 2025-03-09 08:56 | disposition home or self-care (01) | LOC: SCSRAD 08:55 | PROVIDERS: ATTEND Family Medicine | DX: R07.81 Pleurodynia (principal) ==